=== PATIENT | female | born 1975 | race Caucasian/White ===

== ENCOUNTER 2021-01-02 11:37 | Emergency (ER) | payer MEDICAID ==
[~2021-01-02] VITALS: Ht 157.5 cm; Wt 65.8 kg
[2021-01-02 11:49] VITALS: BP_SYST 113
--- NOTE | 2021-01-02 11:49 | NUR ---
Patient to ER bed tent 1 to gown for evaluation. Side rails up.
--- NOTE | 2021-01-02 11:50 | NUR ---
Pt brought by self , ambulatory, A&Ox4, pt presents to ER with cough and blood in the sputum , SOB, states she was posiive for covid december 18, pt O2 96 % room air , afebrile, skin pink and warm, cap refill <3, VSS, will cont to monitor.
--- NOTE | 2021-01-02 12:00 | NUR ---
Dr Youssef evaluating patient at bedside
[2021-01-02] MEDS ORDERED: BENZ-16 PO (12:20)
[2021-01-02 13:20] VITALS: BP_SYST 113
--- NOTE | 2021-01-02 13:42 | NUR ---
Patient given written and verbal discharge instructions and verbalizes understanding. ER MD discussed with patient the results and treatment provided. Patient in stable condition. ID arm band removed. Rx of Tessalon Pearls given. Patient educated on pain management and to follow up with PMD. Pain Scale 0/10. Opportunity for questions provided and answered. Medication side effect fact sheet provided.
== END 2021-01-02 13:20 | disposition home or self-care (01) ==
LOC: SED 11:37
DX: U07.1 COVID-19 (principal); Z79.899 Other long term (current) drug therapy
CPT/HCPCS: 71045; 99283

== ENCOUNTER 2022-03-09 07:18 | Emergency (ER) | payer MEDICAID ==
[~2022-03-09] VITALS: Ht 162.6 cm; Wt 65.3 kg
[~2022-03-09 07:18] MED LIST: BENZ-16 PO
[2022-03-09 07:28] VITALS: BP_SYST 113
[2022-03-09] MEDS ORDERED: KETOROLAC TROMETHAMINE 60 MG/2 ML VIAL IM ONE (07:45)
[2022-03-09] MEDS ORDERED: HYDR-3917 PO (08:42)
[2022-03-09] MEDS ORDERED: IBUP-1969 PO (08:42)
[2022-03-09 09:34] VITALS: BP_SYST 113
== END 2022-03-09 14:04 | disposition home or self-care (01) ==
LOC: SED 07:18
DX: S43.401A Unspecified sprain of right shoulder joint, initial encounter (principal); Z79.899 Other long term (current) drug therapy; W18.30XA Fall on same level, unspecified, initial encounter; Y93.89 Activity, other specified; Y92.89 Other specified places as the place of occurrence of the external cause; Y99.8 Other external cause status
CPT/HCPCS: 99283; 73030; 96372; J1885

== ENCOUNTER 2022-10-30 13:40 | Emergency (ER) | payer MEDICAID ==
[~2022-10-30] VITALS: Ht 157.5 cm; Wt 65.8 kg
[~2022-10-30 13:40] MED LIST changes: +HYDR-3917 PO; +IBUP-1969 PO
[2022-10-30 13:47] VITALS: BP_SYST 112; PULSE 97; RESP 20; TEMP 98.3; O2SAT 98
[2022-10-30] MEDS ORDERED: IBUP-1969 PO (14:27)
[2022-10-30] MEDS ORDERED: AMOX-423 PO (14:27)
[2022-10-30] MEDS ORDERED: DIPHTH,PERTUSS(ACELL),TET VAC 0.5 ML VIAL (Tdap) I.M. ONE (14:30)
[2022-10-30] MEDS ORDERED: AMOXICILLIN/POTASSIUM CLAV 875 MG TABLET PO ONE (14:30)
[2022-10-30 14:59] VITALS: BP_SYST 116; PULSE 95; RESP 20; TEMP 98.3; O2SAT 98
== END 2022-10-30 15:00 | disposition home or self-care (01) ==
LOC: SED 13:40
DX: S51.831A Puncture wound without foreign body of right forearm, initial encounter (principal); Z79.899 Other long term (current) drug therapy; W55.01XA Bitten by cat, initial encounter; Y93.89 Activity, other specified; Y92.89 Other specified places as the place of occurrence of the external cause; Y99.8 Other external cause status
CPT/HCPCS: 90715; 99283